=== PATIENT | male | born 1980 | race Caucasian/White ===

== ENCOUNTER 2018-03-15 06:01 | Emergency (ER) | payer MEDICAID ==
[~2018-03-15] VITALS: Ht 177.8 cm; Wt 80.0 kg
[~2018-03-15 06:01] MED LIST: HIV MEDS
[2018-03-15] MEDS ORDERED: BACITRACIN ZINC OINT UDPKT TOP ONE (06:45)
[2018-03-15] MEDS ORDERED: LIDOCAINE HCL/PF 1% 10 MG/ML 5ML VIAL IJ ONE ×2 (06:45→08:45)
[2018-03-15] MEDS ORDERED: IBUPROFEN 600MG TABLET PO ONE (06:45)
[2018-03-15] MEDS ORDERED: TETANUS, DIPHTHERIA, PERTUSSIS VAC/PF 0.5ML (>7YR OLD) IM ONE (06:45)
[2018-03-15 07:14] LABS: BASOPHILS % 1.4 % (0.0-2.0); EOSINOPHILS % 0.4 % (0.0-5.0); HEMATOCRIT. 39.9 % (42.0-52.0); LYMPHOCYTES % 18.3 % (20.0-50.0); MEAN CORPUSCULAR HEMOGLOBIN 31.9 pg (28.0-32.0); MONOCYTES % 5.6 % (2.0-8.0); NEUTROPHILS % 74.3 % (40.0-76.0); PLATELET 311 x1000/uL (130-400); RED BLOOD CELL COUNT 4.39 mill/uL (4.7-6.1); RED CELL DISTRIBUTION WIDTH 13.4 % (11.6-14.6)
[2018-03-15 07:15] LABS: CLARITY URINE CLEAR (CLEAR); COLOR URINE YELLOW (YELLOW); KETONES URINE NEGATIVE (NEGATIVE); LEUKOCYTE ESTERASE URINE NEGATIVE (NEGATIVE); NITRITE URINE NEGATIVE (NEGATIVE); OCCULT BLOOD URINE NEGATIVE (NEGATIVE); PH URINE 6.5 (4.5-8.0); PROTEIN URINE TRACE (NEGATIVE); SPECIFIC GRAVITY URINE 1.033 (1.005-1.030)
[2018-03-15 07:16] LABS: CHLORIDE 103 mEq/L (98-107)
[2018-03-15 07:21] LABS: ETHANOL BLOOD < 10 mg/dL
[2018-03-15 07:34] LABS: *BARBITURATES SCREEN URINE NEGATIVE (NEGATIVE)
[2018-03-15 07:35] LABS: *AMPHETAMINES SCREEN URINE NEGATIVE (NEGATIVE); *BENZODIAZEPINES SCREEN URINE NEGATIVE (NEGATIVE); *COCAINE SCREEN URINE PRESUMTIVE POSITIVE (NEGATIVE); METHADONE URINE SCREEN NEGATIVE (NEGATIVE); OPIATES URINE SCREEN NEGATIVE (NEGATIVE); PHENCYCLIDINE URINE SCREEN NEGATIVE (NEGATIVE)
[2018-03-15 07:36] LABS: CANNABINOID URINE SCREEN PRESUMTIVE POSITIVE (NEGATIVE)
[2018-03-15 21:51] VITALS: BP 118/81
== END 2018-03-15 22:00 | disposition home or self-care (01) ==
LOC: ER 06:01
DX: S61.512A Laceration without foreign body of left wrist, initial encounter (principal); X78.8XXA Intentional self-harm by other sharp object, initial encounter; R45.851 Suicidal ideations; Y92.89 Other specified places as the place of occurrence of the external cause; F14.10 Cocaine abuse, uncomplicated; F12.10 Cannabis abuse, uncomplicated; F17.210 Nicotine dependence, cigarettes, uncomplicated; Y93.89 Activity, other specified; F20.9 Schizophrenia, unspecified; Z23 Encounter for immunization
CPT/HCPCS: 12002; 36415; 80048; 80305; 80307; 80329; 81003; 85025; 90471; 90715; 99284; G0482; J3490; X7700; Z7610